=== PATIENT | female | born 2000 | race Caucasian/White ===

== ENCOUNTER 2022-04-28 12:34 | Emergency (ER) | payer OTHER ==
[~2022-04-28] VITALS: Ht 157.5 cm; Wt 90.7 kg
[2022-04-28 12:40] VITALS: BP_SYST 123
--- NOTE | 2022-04-28 12:40 | NUR ---
Patient to ER TENT 1 to gown for evaluation. Side rails up.
--- NOTE | 2022-04-28 12:45 | NUR ---
PT BIB FATHER, REPORTS TESTED + FOR COVID TODAY, WAS SEEN AT 2 DAYS AGO AND RX OF BENZONATATE GIVEN, STATES COUGH IS WORSE AND NOW HAS CONGESTION. PT IS AMBULATORY, AAOX4, VSS
--- NOTE | 2022-04-28 13:55 | NUR ---
ER DR. CASTELLON EXAMINING PT IN TENT
[2022-04-28] MEDS ORDERED: PRED20TA PO (16:08)
[2022-04-28] MEDS ORDERED: ALBMDI INH (16:08)
[2022-04-28 16:30] VITALS: BP_SYST 123
--- NOTE | 2022-04-28 16:30 | NUR ---
Patient given written and verbal discharge instructions and verbalizes understanding. ER MD discussed with patient the results and treatment provided. Patient in stable condition. ID arm band removed. IV catheter removed intact and dressing applied, no active bleeding. Rx of ALBUTEROL MDI AND PREDNISONE given. Patient educated on pain management and to follow up with PMD. Pain Scale 0/10. Opportunity for questions provided and answered. Medication side effect fact sheet provided.
== END 2022-04-28 16:30 | disposition home or self-care (01) ==
LOC: SED 12:34
DX: U07.1 COVID-19 (principal); J40 Bronchitis, not specified as acute or chronic; R05.9 Cough, unspecified; J02.9 Acute pharyngitis, unspecified; Z79.899 Other long term (current) drug therapy
CPT/HCPCS: 71045; 99283

== ENCOUNTER 2022-07-18 22:58 | Emergency (ER) | payer OTHER ==
[~2022-07-18] VITALS: Ht 157.5 cm; Wt 90.7 kg
[~2022-07-18 22:58] MED LIST: ALBMDI INH; PRED20TA PO
[2022-07-18 23:10] VITALS: BP_SYST 122
--- NOTE | 2022-07-18 23:10 | NUR ---
Patient triaged and placed in waiting room. VSS and patient appears in no acute distress at this time. Awaiting available bed, and MD notified of need for MSE.
--- NOTE | 2022-07-19 02:10 | NUR ---
Call pt name in the WR.No answer.
--- NOTE | 2022-07-19 02:15 | NUR ---
Patient left without being seen.
== END 2022-07-19 02:15 | disposition left against medical advice (07) ==
LOC: SED 22:58
DX: R05.9 Cough, unspecified (principal); R51.9 Headache, unspecified; R09.81 Nasal congestion; Z20.822 Contact with and (suspected) exposure to COVID-19; Z53.21 Procedure and treatment not carried out due to patient leaving prior to being seen by health care provider
CPT/HCPCS: 36415